=== PATIENT | female | born 1975 | race Caucasian/White ===

== ENCOUNTER 2023-10-18 10:57 | Emergency (ER) | payer OTHER, SELFPAY ==
[2023-10-18 10:59] VITALS: BP 152/95
[2023-10-18] MEDS: DECADRON 10 MG PO (11:23)
[2023-10-18] MEDS: BENADRYL 50 MG PO (11:23)
[2023-10-18 11:26] VITALS: BMI 30.2
[2023-10-18 11:28] VITALS: BP 137/84
[2023-10-18] MEDS: ZOFRAN ODT (ORALLY DISINTEGRATING) 4 MG PO (11:36)
[2023-10-18 12:00] VITALS: BP 126/81
--- NOTE | 2023-10-18 12:30 | ED.GENMED ---
History of Present Illness
General
Chief Complaint: Allergic Reaction
Source: patient
Exam Limitations: none
Time Seen by Provider: 10/18/23 11:05
Nursing documentation reviewed up to this point in time: agreed with
History of Present Illness
History of Present Illness:
48-year-old female past medical history of hyperlipidemia anemia presenting to the emergency department after exposure to peanuts she felt some nasal congestion some itchiness to her throat nausea and some lightheadedness. She was told come to the
ER for further assessment she denies any progression over the last half an hour.
Review of Systems
Review of Systems
Allergies reviewed?: Yes
All Other Systems: ROS reviewed and negative except as documented in HPI and ROS
Phy Exam
Physical Exam
Physical Exam:
GENERAL: Alert , in no apparent distress
EYE: pupils equal and reactive
NECK: Supple, no significant adenopathy.
ENT: o/p clr, mmm.
CARDIAC: Regular rate and rhythm .
LUNGS: Clear breath sounds bilaterally, no acute respiratory distress, no wheezes/rales/rhonchi
ABDOMEN: Soft, without focal tenderness, no r/g, no cvat
NEUROLOGICAL: Alert and oriented, no focal neuro deficits
SKIN: Warm and dry, skin intact.
MUSCULOSKELETAL: No edema, well perfused.
PSYCH: Normal and appropriate interaction.
Course
Orders/Labs/Results
Orders:
Orders
10/18/23 11:08
Dexamethasone [Decadron] 10 mg PO NOW STA
Diphenhydramine [Benadryl] 50 mg PO NOW STA
10/18/23 11:35
Ondansetron Orally Disint [Zofran Odt (Orally Disintegrating)] 4 mg .ROUTE .STK-MED ONE
10/18/23 11:36
Ondansetron Orally Disint [Zofran Odt (Orally Disintegrating)] 4 mg PO NOW STA
Vital Signs
Initial and Last Documented VS:
Initial Vital Signs
Temp Pulse Resp BP Pulse Ox
98.0 F 97 18 152/95 98
10/18/23 10:59 10/18/23 10:59 10/18/23 10:59 10/18/23 10:59 10/18/23 10:59
Last Documented Vital Signs
Temp Pulse Resp BP Pulse Ox
98.0 F 85 26 126/81 96
10/18/23 10:59 10/18/23 12:00 10/18/23 12:00 10/18/23 12:00 10/18/23 12:00
MDM/Problems Addressed
MDM/Problems Addressed:
48-year-old female presenting to the emergency department with concerns of potential allergy to peanuts she was exposed to prior to arrival. She had some shortness of breath sore throat nausea lightheadedness. Did not take any medications prior to
arrival. Upon arrival blood pressure elevated otherwise vital signs are normal. Patient with no obvious swelling no obvious rash no wheezing. Concerning her history and description of symptoms she was given a dose of steroid as well as
antihistamine for potential biphasic reaction. She was watched here for about 2 hours with no progression of symptoms patient appears stable for discharge return precautions given.
*Critical Care Note
Total Time (30-74mins, 75-104mins- exclusive of procedures): Not Applicable
ED Attending Note
-
Portions of this chart may have been created with voice recognition software.� Occasional wrong word or��sound alike� substitutions may have occurred due to the inherent limitations of voice recognition software.
Discharge Plan
Departure
Patient Disposition: Home (Routine Discharge)
Date of Disposition: 10/18/23
Time of Disposition: 12:33
Patient with high blood pressure during this ER visit?: No
Condition: Good
Covid-19: Not Applicable
Discharge Problem:
Allergic reaction
Instructions: How to Keep Track of Your Allergies
Referrals:
Catia Napier CRNP [Family Provider] -
Activity Restrictions/Additional Instructions:
You came to the emergency department today with concerns of potential allergy. Here you had a reassuring assessment. Return for any worsening, new or concerning symptoms.
Interventions
Interventions:
*Risk Screen - Suicide Last Done: 10/18/23 11:03
*General Assessment Last Done: 10/18/23 11:03
*Neglect/Abuse Screening Last Done: 10/18/23 11:03
ED- Fall Risk Assessment Last Done: 10/18/23 11:31
*ED COVID-19 Vaccine History Last Done: 10/18/23 11:27
ED- Cardiac Assessment Last Done: 10/18/23 11:30
ED- Pulmonary Assessment Last Done: 10/18/23 11:30
ED-Skin Assessment Last Done: 10/18/23 11:30
Discharge Date and Time
Print Language: ROMANIAN
== END 2023-10-18 12:44 | disposition home or self-care (01) ==
LOC: EMR 10:57
PROVIDERS: EMERGENCY PHYSICIAN Emergency Medicine; FAMILY PHYSICIAN Nurse Practitioner
DX: T78.40XA Allergy, unspecified, initial encounter (principal); Y92.9 Unspecified place or not applicable; E78.00 Pure hypercholesterolemia, unspecified; D64.9 Anemia, unspecified
CPT/HCPCS: 99282

== ENCOUNTER 2024-07-03 13:48 | Emergency (ER) | payer OTHER, SELFPAY ==
[2024-07-03 13:56] VITALS: BP 143/102
[2024-07-03] MEDS: PEPCID 20 MG IV (14:34)
[2024-07-03] MEDS: BENADRYL 50 MG IV (14:34)
[2024-07-03] MEDS: NSS 500 IV (14:36)
[2024-07-03] MEDS: DECADRON 8 MG IV (14:42)
[2024-07-03 14:43] VITALS: BP 141/83
--- NOTE | 2024-07-03 14:52 | ED.GENMED ---
History of Present Illness
General
Chief Complaint: Allergic Reaction
Source: patient
Exam Limitations: none
Time Seen by Provider: 07/03/24 14:09
History of Present Illness
History of Present Illness:
Patient went out to eat. 8 at a restaurant and developed some hoarseness to the throat itchy eyes some palpitations and nausea. All consistent with allergic reaction. Took an EpiPen. Feels mildly improved. Denies other symptoms at this time
Past History
Past History
ED Past Medical History: Hypercholesterolemia and Psychiatric (Anxiety)
ED Past Surgical History: Cardiac, Gynecological, Orthopedic and Tonsilectomy
Review of Systems
Review of Systems
All Other Systems: Not applicable
Respiratory: Reports no symptoms
Phy Exam
Physical Exam
Physical Exam:
GENERAL: Alert and oriented in no apparent distress
EYE: Orbits normal.
NECK: Supple
ENT: Pharynx without erythema. No drooling or stridor
CARDIAC: Regular rate and rhythm without any obvious murmurs.
LUNGS: Clear breath sounds,normal
NEUROLOGICAL: Alert and oriented , grossly non-focal
SKIN: Warm and dry, no rash or lesion, no discoloration, skin intact. No hives
MUSCULOSKELETAL: No edema,no deformity.Good color
PSYCH: Normal and appropriate interaction.
Course
Orders/Labs/Results
Orders:
Orders
07/03/24 13:58
Electrocardiogram (*1) Urgent
Reason for Study: Palpitations
EKG- Treatment ONCE
07/03/24 14:14
Cardiac Monitoring- Treatment ONCE
IV Insert/Care/Rem.- Treatment PRN
0.9% Sodium Chloride 500 ml [Nss] 500 ml IV BOLUS
Dexamethasone Sod Phosphate [Decadron] 8 mg IV NOW STA
Diphenhydramine [Benadryl] 50 mg IV NOW STA
Famotidine [Pepcid] 20 mg IV NOW STA
Pulse Ox/cont/shift [RESP] Stat
Quantity: 1
Vital Signs
Initial and Last Documented VS:
Initial Vital Signs
Temp Pulse Resp BP Pulse Ox
98.7 F 106 16 143/102 99
07/03/24 13:56 07/03/24 13:56 07/03/24 13:56 07/03/24 13:56 07/03/24 13:56
Last Documented Vital Signs
Temp Pulse Resp BP Pulse Ox
98.7 F 106 16 143/102 99
07/03/24 13:56 07/03/24 13:56 07/03/24 13:56 07/03/24 13:56 07/03/24 13:56
MDM/Problems Addressed
Differential Diagnosis Includes:
Patient describing acute allergic reaction likely foodborne. Typical symptoms for her. Medically stable. H1 and H2 percy steroids and observation
*Pulse Oximetry
Patient hypoxic: no
*EKG
Interpreted by ED Provider?: Yes
Interpretation: normal
Comparison EKG: no comparison EKG present
Heart Rate: 92
Rate: normal
Rhythm: sinus
[place]: normal axis
Interval: normal interval
QRS Pattern: normal QRS
Ischemia: non-specific ST changes
*Manager Sign Interpretation
Rate: normal
Interpretation: normal
Heart Rate: 88
Rhythm: sinus
*Critical Care Note
Total Time (30-74mins, 75-104mins- exclusive of procedures): Not Applicable
Update Note
Update Note:
1525... Rechecked and doing well. Will observe till 4 PM. Then discharged to follow-up
1600... doing well d/c
ED Attending Note
-
Portions of this chart may have been created with voice recognition software.� Occasional wrong word or��sound alike� substitutions may have occurred due to the inherent limitations of voice recognition software.
Discharge Plan
Departure
Patient Disposition: Home (Routine Discharge)
Date of Disposition: 07/03/24
Time of Disposition: 15:58
Patient with high blood pressure during this ER visit?: Yes
Discharge Problem:
Acute allergic reaction/food allergy
Instructions: Allergic reaction - ED discharge instructions, BLOOD PRESSURE
Prescriptions:
New
epinephrine [EpiPen] 0.3 mg/0.3 mL auto-injector
0.3 mg IM .STAT PRN (Reason: anaphylaxis) Qty: 1 0RF
Referrals:
Marianela Allen MD [Family Provider] - Follow up in 2-3 days
Activity Restrictions/Additional Instructions:
Your prescription was sent to your pharmacy
Take your Pepcid a day the next 2 to 3 days
Continue Benadryl or Claritin the next few days
Interventions
Interventions:
*Risk Screen - Suicide Last Done: 07/03/24 13:58
*Neglect/Abuse Screening Last Done: 07/03/24 13:58
Discharge Date and Time
Print Language: POLISH
[2024-07-03 15:00] VITALS: BP 134/80
[2024-07-03 16:00] VITALS: BP 134/85
== END 2024-07-03 16:37 | disposition home or self-care (01) ==
LOC: EMR 13:48
PROVIDERS: EMERGENCY PHYSICIAN Emergency Medicine; FAMILY PHYSICIAN Internal Medicine
DX: T78.1XXA Other adverse food reactions, not elsewhere classified, initial encounter (principal); R49.0 Dysphonia; R00.2 Palpitations; R11.0 Nausea; H57.89 Other specified disorders of eye and adnexa; X58.XXXA Exposure to other specified factors, initial encounter; E78.00 Pure hypercholesterolemia, unspecified
CPT/HCPCS: 96374; 96375; 96361; 99284; 93005

== ENCOUNTER 2024-08-12 13:46 | Emergency (ER) | payer OTHER, SELFPAY ==
[2024-08-12 13:48] VITALS: BP 139/94
--- NOTE | 2024-08-12 13:53 | ED.GENMED ---
History of Present Illness
General
Chief Complaint: Allergic Reaction
Time Seen by Provider: 08/12/24 13:53
History of Present Illness
History of Present Illness:
TIME OF INITIAL ENCOUNTER: 1:55 PM
HPI: The patient has history of tree nut, peanut, and soy allergy. While at work, a coworker was heating something up in the microwave. The patient then had rather significant symptoms consistent with allergic reaction. Her chest feels tight.
She gave herself a shot of epinephrine about 40 minutes ago. The exposure occurred about 60 minutes ago. She feels somewhat improved but symptoms still persist.
EXAM:
GENERAL: Well appearing in no distress
HEENT: Moist oral mucosa, widely patent posterior oropharynx, no uvular edema
CARDIOVASCULAR: No murmurs, tachycardic heart rate, regular rhythm, No chest wall tenderness
PULMONARY: No respiratory distress, breath sounds are clear and equal, no wheeze
ABDOMEN: Soft with no peritoneal signs, no tenderness
NEUROLOGIC: Excellent strength all extremities, no coordination deficits
PSYCHIATRIC: Appropriate mental status, normal insight and judgement
EXTREMITIES: Nontender, no edema, moves all extremities equally
SKIN: No rash, no lesions
NUMBER AND COMPLEXITY OF PROBLEMS ADDRESSED AT THE ENCOUNTER
� Chronic conditions affecting care: Food allergy
� Acute Exacerbation and/or Progression of Chronic Illness: This is an acute problem
� Differential Diagnosis includes: Exacerbation of food allergy, reactive airway disease, anxiety
AMOUNT AND/OR COMPLEXITY OF DATA TO BE REVIEWED AND ANALYZED
� I performed an independent evaluation of and my interpretation is:
EKG:
CT:
X-rays:
Laboratory Studies:
Other:
� Review of other/old records: The patient was seen here in June with dysphonia and was given an epi shot at that time as well.
� Clinical information was obtained by an independent historian: None needed
� Prescriptions/Medications Considered but not given:
� Further testing considered but not performed:
RISK OF COMPLICATIONS AND/OR MORBIDITY OR MORTALITY OF PATIENT MANAGEMENT
� Social determinants of health affecting care: Lives at home
� Discussion with other providers:
� Escalation of care including admission/observation vs risk of discharge considered: The patient was given an additional shot of epi, Pepcid/Benadryl, steroids and nebulized albuterol.
ANY OTHER UPDATES:
2:40 PM: On reassessment, patient feels markedly improved. Will give prescription for EpiPen. She states in the past she also received prescription for steroids for a few days. I will give a prescription for this in case she needs it.
Past History
Past History
ED Past Medical History: Hypercholesterolemia and Psychiatric (Anxiety)
ED Past Surgical History: Cardiac, Gynecological, Orthopedic and Tonsilectomy
Phy Exam
Physical Exam
Physical Exam:
See HPI
Course
Orders/Labs/Results
Orders:
Orders
08/12/24 13:57
Albuterol Nebs [Ventolin Nebules] 2.5 mg INH R NOW STA
Diphenhydramine [Benadryl] 25 mg IV NOW STA
EPINEPHrine PF [Adrenalin] 0.3 mg IM NOW STA
Famotidine [Pepcid] 20 mg IV NOW STA
MethylPREDNISolone PF [Solu-Medrol Pf] 125 mg IV NOW STA
08/12/24 13:58
Peak Flow Rate [RESP] Urgent
Quantity: 1
Pre-Bronchodilator: Yes
Post Bronchodilator: Yes
Special Instructions: Pre and Post Peak Flow before and after Bronchodilator
Vital Signs
Initial and Last Documented VS:
Initial Vital Signs
Temp Pulse Resp BP Pulse Ox
36.8 C 116 20 139/94 99
08/12/24 13:48 08/12/24 13:48 08/12/24 13:48 08/12/24 13:48 08/12/24 13:48
Last Documented Vital Signs
Temp Pulse Resp BP Pulse Ox
36.8 C 99 19 131/81 98
08/12/24 13:48 08/12/24 14:15 08/12/24 14:15 08/12/24 14:00 08/12/24 14:20
*Critical Care Note
Total Time (30-74mins, 75-104mins- exclusive of procedures): Not Applicable
ED Attending Note
-
Portions of this chart may have been created with voice recognition software.� Occasional wrong word or��sound alike� substitutions may have occurred due to the inherent limitations of voice recognition software.
Discharge Plan
Departure
Prescriptions:
No Action
epinephrine [EpiPen] 0.3 mg/0.3 mL auto-injector
0.3 mg IM .STAT PRN (Reason: anaphylaxis) Qty: 1 0RF
Referrals:
Marianela Allen MD [Family Provider, Internal Medicine]
Interventions
Interventions:
*Risk Screen - Suicide Last Done: 08/12/24 13:48
*General Assessment Last Done: 08/12/24 13:48
*Neglect/Abuse Screening Last Done: 08/12/24 13:53
*ED- Fall Risk Assessment Last Done: 08/12/24 13:52
*ED COVID-19 Vaccine History Last Done: 08/12/24 13:52
ED- Cardiac Assessment Last Done: 08/12/24 14:20
ED- Pulmonary Assessment Last Done: 08/12/24 14:20
ED-Skin Assessment Last Done: 08/12/24 14:20
Discharge Date and Time
Print Language: FRENCH
[2024-08-12 13:59] VITALS: BP 145/90
[2024-08-12 14:00] VITALS: BP 131/81
[2024-08-12] MEDS: VENTOLIN NEBULES 2.5 MG INH (14:05)
[2024-08-12] MEDS: SOLU-MEDROL PF 125 MG IV (14:05)
[2024-08-12] MEDS: PEPCID 20 MG IV (14:05)
[2024-08-12] MEDS: ADRENALIN 0.3 MG IM (14:06)
[2024-08-12] MEDS: BENADRYL 25 MG IV (14:06)
[2024-08-12 15:00] VITALS: BP 149/80
== END 2024-08-12 15:39 | disposition home or self-care (01) ==
LOC: EMR 13:46
PROVIDERS: EMERGENCY PHYSICIAN Emergency Medicine; FAMILY PHYSICIAN Internal Medicine
DX: R07.89 Other chest pain (principal); R06.02 Shortness of breath; R21 Rash and other nonspecific skin eruption; T78.40XA Allergy, unspecified, initial encounter; E78.00 Pure hypercholesterolemia, unspecified; F41.9 Anxiety disorder, unspecified; Z91.018 Allergy to other foods; Z91.010 Allergy to peanuts; Z88.2 Allergy status to sulfonamides
CPT/HCPCS: 99284; 96374; 96375 ×2; 94640; 96372

== ENCOUNTER 2024-08-27 14:19 | Emergency (ER) | payer OTHER, SELFPAY ==
[2024-08-27] VITALS (8 sets, daily range): BP systolic 118–149; BP diastolic 67–98; BMI 26.7
--- NOTE | 2024-08-27 15:54 | ED.GENMED ---
History of Present Illness
General
Chief Complaint: Allergic Reaction
Source: patient
Exam Limitations: none
Time Seen by Provider: 08/27/24 15:46
Nursing documentation reviewed up to this point in time: agreed with
History of Present Illness
History of Present Illness:
Note:
CHIEF COMPLAINT(S)
Possible allergic reaction.
HISTORY OF PRESENT ILLNESS
The patient is a 49-year-old female with a history of allergies to soy, peanut, and tuna, presenting with symptoms suggestive of an allergic reaction. The symptoms began shortly after someone microwaved leftovers at her workplace. She started
experiencing coughing, throat clearing, tachycardia, chest pain, facial tightness, and right periorbital swelling. The patient reported no itching. Approximately two weeks ago, she experienced a similar reaction under comparable circumstances. She
administered an EpiPen around 2 p.m., approximately half an hour after potential exposure, and noted persistent nausea and incomplete relief of symptoms.
ALLERGIES
Soy, peanut, tree nut.
PHYSICAL EXAM
Physical Exam
General: no apparent distress, not acutely ill
Neck: supple. no meningeal signs. normal posterior pharynx
Heart: s1/s2 regular rate and rhythm, no murmur. equal radial
pulses.
HEENT: Pupils equal round reactive to light, EOMI
Lungs: no acute respiratory distress. clear bilaterally
Abdomen: normal bowel sounds. not tender. no CVAT
Neuro: alert and oriented. no focal neurological deficits
Skin: no rash
Psychiatric: well kept. interactive and cooperative
Extremities: no edema. no calf tenderness. negative homans. good distal pulses
PLAN
Monitor the patient for one hour to observe symptom resolution. Prescribe a refill for EpiPen. benadyl and prednisone
DIFFERENTIAL DIAGNOSIS
The Differential Diagnosis includes, in no particular order and is not limited to:
- Anaphylaxis
- Angioedema
- Asthma exacerbation
- Anxiety attack
- Food poisoning
- Esophageal spasm
- Cardiovascular event
- Chemical irritation inhalation
- Hawthorne-Dharmesh syndrome
- Vasovagal reaction
Note:
CARE-UPDATE
08/27/24 - 19:14
The patient reports improvement following administration of oral Benadryl and oral prednisone. She is assessed as stable and cleared for discharge. A prescription for a short course of prednisone, 50 mg, has been provided along with instructions for
epinephrine use if needed. The patient will follow up with primary care, and return precautions have been communicated.
Disposition:
MEDICATION RECONCILIATION
Prescribed EpiPen refill, Benadryl, and prednisone. Administered oral Benadryl and prednisone in ED.
MEDICAL DECISION MAKING
1. Number & Complexity of Problems: Chronic conditions affecting care: allergies (soy, peanut, tree nut). Differential diagnosis includes anaphylaxis, angioedema, asthma exacerbation, anxiety attack, food poisoning, esophageal spasm, cardiovascular
event, chemical irritation inhalation, Hawthorne-Dharmesh syndrome, vasovagal reaction.
3. Risk: Consideration of admission/observation was made due to complexity/risk. However, outpatient management is appropriate based on symptom improvement after treatment and stable assessment.
PATHOLOGIES TO CONSIDER
- Anaphylaxis (due to allergy history and symptom presentation).
- Angioedema (given the right periorbital swelling).
- Cardiovascular event (due to chest pain and tachycardia).
- Asthma exacerbation (considered given respiratory symptoms).
- Chemical irritation inhalation (due to symptoms starting after exposure to microwaved leftovers).
Past History
Past History
ED Past Medical History: Hypercholesterolemia and Psychiatric (Anxiety)
ED Past Surgical History: Cardiac, Gynecological, Orthopedic and Tonsilectomy
Phy Exam
Physical Exam
Physical Exam:
Physical Exam
General: no apparent distress, not acutely ill
Neck: supple. no meningeal signs. normal posterior pharynx
Heart: s1/s2 regular rate and rhythm, no murmur. equal radial
pulses.
HEENT: Pupils equal round reactive to light, EOMI
Lungs: no acute respiratory distress. clear bilaterally
Abdomen: normal bowel sounds. not tender. no CVAT
Neuro: alert and oriented. no focal neurological deficits cranial nerves II through XII intact
Skin: no rash
Psychiatric: well kept. interactive and cooperative
Extremities: no edema. no calf tenderness. negative homans. good distal pulses
Course
Orders/Labs/Results
Orders:
Orders
08/27/24 15:55
Diphenhydramine [Benadryl] 25 mg PO NOW STA
Prednisone [Deltasone] 50 mg PO NOW STA
Vital Signs
Initial and Last Documented VS:
Initial Vital Signs
Temp Pulse Resp BP Pulse Ox
98.0 F 103 18 149/98 98
08/27/24 14:21 08/27/24 14:21 08/27/24 14:21 08/27/24 14:21 08/27/24 14:21
Last Documented Vital Signs
Temp Pulse Resp BP Pulse Ox
98.0 F 96 23 131/75 96
08/27/24 14:21 08/27/24 18:15 08/27/24 18:15 08/27/24 18:00 08/27/24 18:15
*Pulse Oximetry
SaO2: 98
Oxygen Mode of Delivery: Room air
Patient hypoxic: no
*Critical Care Note
Total Time (30-74mins, 75-104mins- exclusive of procedures): Not Applicable
ED Attending Note
-
Portions of this chart may have been created with voice recognition software.� Occasional wrong word or��sound alike� substitutions may have occurred due to the inherent limitations of voice recognition software.
Discharge Plan
Departure
Patient Disposition: Home (Routine Discharge)
Date of Disposition: 08/27/24
Time of Disposition: 19:06
Patient with high blood pressure during this ER visit?: Yes
Condition: Good
Discharge Problem:
Allergic reaction
Instructions: Food allergy, BLOOD PRESSURE
Prescriptions:
New
epinephrine [EpiPen 2-Patel] 0.3 mg/0.3 mL auto-injector
0.3 mg IM ONCE PRN (Reason: anaphylaxis) Qty: 2 0RF
prednisone 50 mg tablet
50 mg PO DAILY Qty: 5 0RF
No Action
epinephrine [EpiPen] 0.3 mg/0.3 mL auto-injector
0.3 mg IM .STAT PRN (Reason: anaphylaxis) Qty: 1 0RF
epinephrine [EpiPen] 0.3 mg/0.3 mL auto-injector
0.3 mg IM .STAT PRN (Reason: hypersensitivity reaction) Qty: 1 0RF
prednisone 50 mg tablet
50 mg PO DAILY Qty: 4 0RF
Referrals:
Marianela Allen MD [Family Provider, Internal Medicine] - Call in 1-3 days for appt
Interventions
Interventions:
*Risk Screen - Suicide Last Done: 08/27/24 14:21
*General Assessment Last Done: 08/27/24 16:13
*Neglect/Abuse Screening Last Done: 08/27/24 14:21
*ED- Fall Risk Assessment Last Done: 08/27/24 16:13
ED- Cardiac Assessment Last Done: 08/27/24 16:11
ED- Pulmonary Assessment Last Done: 08/27/24 16:11
ED-Skin Assessment Last Done: 08/27/24 16:11
Discharge Date and Time
Print Language: FINNISH
[2024-08-27] MEDS: DELTASONE 50 MG PO (16:18)
[2024-08-27] MEDS: BENADRYL 25 MG PO (16:18)
== END 2024-08-27 19:32 | disposition home or self-care (01) ==
LOC: EMR 14:19
PROVIDERS: EMERGENCY PHYSICIAN Emergency Medicine; FAMILY PHYSICIAN Internal Medicine
DX: T78.40XA Allergy, unspecified, initial encounter (principal); X58.XXXA Exposure to other specified factors, initial encounter; E78.00 Pure hypercholesterolemia, unspecified
CPT/HCPCS: 99283

== ENCOUNTER 2024-09-05 12:41 | Emergency (ER) | payer OTHER, SELFPAY ==
[2024-09-05 12:49] VITALS: BP 144/98
[2024-09-05 14:34] VITALS: BP 133/86
[2024-09-05 14:35] VITALS: BMI 28.6
[2024-09-05] MEDS: DECADRON 10 MG PO (14:46)
[2024-09-05] MEDS: BENADRYL 50 MG PO (14:47)
[2024-09-05 15:00] VITALS: BP 123/80
--- NOTE | 2024-09-05 15:20 | ED.GENMED ---
History of Present Illness
General
Chief Complaint: Allergic Reaction
Source: patient
Exam Limitations: none
Time Seen by Provider: 09/05/24 14:29
Nursing documentation reviewed up to this point in time: agreed with
History of Present Illness
History of Present Illness:
49-year-old female with history of HLD, iron deficiency anemia, anxiety/depression, presents to the emergency department with an allergic reaction. The episode began a little after 12 PM when someone at work microwaved food containing soy protein,
to which the patient is allergic. She reports subsequent onset of throat soreness, an increased heart rate, and feeling lightheaded. The patient self-administered an EpiPen prior to arrival. Currently, she feels a bit lightheaded and reports mild
chest tightness with throat still 'a little tight.'
Meds:
- Potassium supplement
- Iron supplement
- Duloxetine (Cymbalta) for anxiety and depression
- Bupropion (Wellbutrin) for anxiety and depression
- Pravastatin (Crestor)
Past History
Past History
ED Past Medical History: Hypercholesterolemia and Psychiatric (Anxiety)
ED Past Surgical History: Cardiac, Gynecological, Orthopedic and Tonsilectomy
Social History
Tobacco: Non-smoker
Alcohol: None
Personal:
Living: with family
Employment: Employed
Review of Systems
Review of Systems
Allergies reviewed?: Yes
All Other Systems: ROS reviewed and negative except as documented in HPI and ROS
Constitutional: Denies fever
EENT: Reports sore throat (Feels 'a little tight.'); Denies mouth swelling
Respiratory: Denies cough or trouble breathing
Cardiac: Reports chest pain ('A little chest tightness')
ABD/GI: Denies abdominal pain, nausea, vomiting or diarrhea
Musculoskeletal: Reports no symptoms
Skin: Reports no symptoms; Denies rash
Neurological: Reports no symptoms
Phy Exam
Physical Exam
Physical Exam:
GENERAL: No acute distress. A&Ox3.
CONSTITUTIONAL: Afebrile.
EYES: clear, conjunctivae normal
ENMT: moist mucus membranes, Pharynx nl
RESPIRATORY: Regular respirations, nonlabored, lungs clear.
CARDIOVASCULAR: Regular rate and rhythm, no murmurs, no rubs.
GI: Soft, nontender,
MUSCULOSKELETAL: Moves with ease. Well perfused.
SKIN: Warm, dry, pink, no rash
PSYCH: Normal mood and affect. Well kept, interactive and appropriate
NEUROLOGIC: Awake, alert and oriented. No focal neurological deficits
Course
Orders/Labs/Results
Orders:
Orders
09/05/24 14:35
Electrocardiogram (*1) Urgent
Reason for Study: Chest Pain
EKG- Treatment ONCE
Diphenhydramine [Benadryl] 50 mg PO NOW STA
09/05/24 14:36
Dexamethasone [Decadron] 10 mg PO NOW STA
Vital Signs
Initial and Last Documented VS:
Initial Vital Signs
Temp Pulse Resp BP Pulse Ox
98.7 F 119 18 144/98 99
09/05/24 12:49 09/05/24 12:49 09/05/24 12:49 09/05/24 12:49 09/05/24 12:49
Last Documented Vital Signs
Temp Pulse Resp BP Pulse Ox
98.7 F 90 24 123/80 97
09/05/24 12:49 09/05/24 15:45 09/05/24 15:45 09/05/24 15:00 09/05/24 15:45
MDM/Problems Addressed
Differential Diagnosis Includes:
allergic reaction, food allergy, anaphylaxis
MDM/Problems Addressed:
49-year-old female with history of HLD, iron deficiency anemia, anxiety/depression, presents to the emergency department with an allergic reaction. The episode began a little after 12 PM when someone at work microwaved food containing soy protein,
to which the patient is allergic. She reports subsequent onset of throat soreness, an increased heart rate, and feeling lightheaded. The patient self-administered an EpiPen prior to arrival. Currently, she feels a bit lightheaded and reports mild
chest tightness with throat still 'a little tight.'
NAD
Plan:
The patient will be monitored for a short period in the emergency department.
An electrocardiogram (EKG) will be performed.
Offer a large glass of water for hydration.
Administer Benadryl and Decadron as the patient desires additional medication for allergy symptom relief.
Ensure the patient has a ride home.
3:30 p.m.
Pt feeling better
No sign of anaphylaxis
Rx for Epi Pen, Prednisone sent to her pharmacy
*Pulse Oximetry
SaO2: 96
Oxygen Mode of Delivery: Room air
Patient hypoxic: no
*Critical Care Note
Total Time (30-74mins, 75-104mins- exclusive of procedures): Not Applicable
ED Attending Note
-
Portions of this chart may have been created with voice recognition software.� Occasional wrong word or��sound alike� substitutions may have occurred due to the inherent limitations of voice recognition software.
Discharge Plan
Departure
Patient Disposition: Home (Routine Discharge)
Date of Disposition: 09/05/24
Time of Disposition: 15:28
Patient with high blood pressure during this ER visit?: No
Condition: Good
Discharge Problem:
Allergic reaction, Allergic reaction to food additive
Instructions: Allergic reaction - ED discharge instructions
Prescriptions:
New
epinephrine [EpiPen 2-Patel] 0.3 mg/0.3 mL auto-injector
0.3 mg IM Q5-15M PRN (Reason: anaphylaxis) Qty: 2 0RF
prednisone 10 mg tablet
10 mg PO DAILY Qty: 9 0RF
No Action
epinephrine [EpiPen] 0.3 mg/0.3 mL auto-injector
0.3 mg IM .STAT PRN (Reason: anaphylaxis) Qty: 1 0RF
epinephrine [EpiPen] 0.3 mg/0.3 mL auto-injector
0.3 mg IM .STAT PRN (Reason: hypersensitivity reaction) Qty: 1 0RF
prednisone 50 mg tablet
50 mg PO DAILY Qty: 4 0RF
epinephrine [EpiPen 2-Patel] 0.3 mg/0.3 mL auto-injector
0.3 mg IM ONCE PRN (Reason: anaphylaxis) Qty: 2 0RF
prednisone 50 mg tablet
50 mg PO DAILY Qty: 5 0RF
Referrals:
Marianela Allen MD [Family Provider, Internal Medicine] - As needed
Activity Restrictions/Additional Instructions:
As we discussed, I sent a prescription to your pharmacy for EpiPen and also for prednisone to take 30 mg a day for the next 3 days starting tomorrow as you were given a dose of steroid here today.
You may continue Benadryl 50 mg every 6 hours as needed
Interventions
Interventions:
*Risk Screen - Suicide Last Done: 09/05/24 12:49
*General Assessment Last Done: 09/05/24 12:49
*Neglect/Abuse Screening Last Done: 09/05/24 12:49
*ED- Fall Risk Assessment Last Done: 09/05/24 14:35
*ED COVID-19 Vaccine History Last Done: 09/05/24 14:35
*Nursing Disposition Last Done: 09/05/24 16:14
ED- Cardiac Assessment Last Done: 09/05/24 14:35
ED- Pulmonary Assessment Last Done: 09/05/24 14:35
ED-Skin Assessment Last Done: 09/05/24 14:35
Discharge Date and Time
Discharge Date/Time: 09/05/24 16:14
Print Language: AUSTRALIAN
== END 2024-09-05 16:14 | disposition home or self-care (01) ==
LOC: EMR 12:41
PROVIDERS: EMERGENCY PHYSICIAN Emergency Medicine; FAMILY PHYSICIAN Internal Medicine
DX: T78.1XXA Other adverse food reactions, not elsewhere classified, initial encounter (principal); Y92.9 Unspecified place or not applicable; E78.00 Pure hypercholesterolemia, unspecified; F41.8 Other specified anxiety disorders; D50.9 Iron deficiency anemia, unspecified
CPT/HCPCS: 99283; 93005